=== PATIENT | male | born 1935 | race Caucasian/White ===

== ENCOUNTER 2016-09-28 13:50 | Emergency (ER) | payer OTHER ==
[~2016-09-28] VITALS: Wt 66.0 kg
[2016-09-28 14:58] LABS: ADD SCAN DIFF NO
[2016-09-28 15:00] LABS: BASOPHILS % 0.5 % (0.0-2.0); EOSINOPHILS # 0.3 10^3/ul (0.0-0.5); EOSINOPHILS % 5.4 % (0.0-7.0); HEMATOCRIT 46.7 % (42.0-52.0); HEMOGLOBIN 15.5 g/dl (14.0-18.0); LYMPHOCYTES # 1.4 10^3/ul (0.8-2.9); LYMPHOCYTES % 23.8 % (15.0-51.0); MEAN CORPUSCULAR HEMOGLOBIN 31.3 pg (29.0-33.0); MEAN CORPUSCULAR HGB CONC 33.2 g/dl (32.0-37.0); MEAN CORPUSCULAR VOLUME 94.2 fl (82.0-101.0); MEAN PLATELET VOLUME 10.1 fl (7.4-10.4); MONOCYTE # 0.6 10^3/ul (0.3-0.9); MONOCYTES % 10.8 % (0.0-11.0); NEUTROPHIL # 3.4 10^3/ul (1.6-7.5); NEUTROPHILS % 59.2 % (39.0-77.0); PLATELET COUNT 209 10^3/UL (140-415); RED BLOOD COUNT 4.96 10^6/ul (4.70-6.10); RED CELL DISTRIBUTION WIDTH 14.5 % (11.5-14.5); WHITE BLOOD COUNT 5.7 10^3/ul (4.8-10.8)
[2016-09-28 15:02] LABS: ADD UMIC YES; URINE BILIRUBIN (Dip) 2+ (NEGATIVE); URINE BLOOD (Dip) 1+ (NEGATIVE); URINE COLOR DK. YELLOW (YELLOW); URINE GLUCOSE (Dip) NEGATIVE (NEGATIVE); URINE KETONES (Dip) TRACE (NEGATIVE); URINE LEUKOCYTE ESTERASE (Dip) NEGATIVE (NEGATIVE); URINE NITRITE (Dip) NEGATIVE (NEGATIVE); URINE TOTAL PROTEIN (Dip) NEGATIVE (NEGATIVE); URINE UROBILINOGEN (Dip) 1.0 E.U./dL (0.1-1.0)
[2016-09-28 15:29] LABS: ICTOTEST POSITIVE (NEGATIVE)
[2016-09-28 15:30] LABS: BACTERIA,URINE FEW; TRANSITIONAL EPI CELLS,URINE OCCASIONAL
[2016-09-28 15:32] LABS: ALBUMIN 4.7 g/dl (3.3-4.9); ALBUMIN/GLOBULIN RATIO 1.04; BILIRUBIN,DIRECT 0.9 mg/dl (0.00-0.20); BILIRUBIN,INDIRECT 0.8 mg/dl (0-1.1); BILIRUBIN,TOTAL 1.7 mg/dl (0.2-1.3); CALCIUM 9.9 mg/dl (8.4-10.2); CREATININE 1.17 mg/dl (0.61-1.24); POTASSIUM 4.1 mmol/L (3.5-5.1); TOTAL PROTEIN 9.2 g/dl (6.1-8.1)
--- NOTE | 2016-09-28 15:57 | RADRPT ---
PROCEDURE: CT Abdomen and Pelvis without contrast. CLINICAL INDICATION: Elevated liver enzymes. TECHNIQUE: CT scan of the abdomen and pelvis without contrast was performed. Coronal and sagittal reformatted images were obtained from the axial source images. Images were reviewed on a high-resolu [place] PACS workstation. Total exam DLP is 552.75 mGy-cm. CTDIvol is 10.12 mGy. One or more of the f ollowing dose reduction techniques were used: Automated exposure control, adjustment of the mA and/o r kV according to patient size, use of iterative reconstruction technique. COMPARISON: None. FINDINGS: The lung bases are normal. There is no pleural effusion. The liver is normal in size and attenuation. There is no focal hepatic lesion. The gallbladder is unremarkable with no evidence of stones or wall thickening. There is diffuse kannan iary dilatation. The spleen is normal in size. There is no focal splenic lesion. Both adrenals are normal with no enlargement or mass. The pancreas is unremarkable with no mass or evidence of pancreatitis. There is no solid renal mass, hydronephrosis, or calculus. There is a benign cyst in the upper righ t kidney measuring 4.6 cm, a benign cyst in the upper to mid left kidney measuring 3.1 cm, and a radha ign cyst in the mid left kidney laterally measuring 3.5 cm. There is no ureteral calculus on either side. The abdominal aorta is not dilated. There is calcification in the aorta consistent with atheroscler osis. There is no retroperitoneal lymphadenopathy or mass. There is no pelvic lymphadenopathy or mass. The bladder and distal ureters are normal. The appendix is well seen and appears normal. There is a left inguinal hernia containing only omental fat. There is no herniated bowel. The kamran l and mesentery are otherwise normal. There is no free fluid or free gas. There are degenerative changes of the spine. Bilateral pars defects are present at L4 and there is grade 1 anterolisthesis at L4-5 measuring 0.7 cm. IMPRESSION: 1. Diffuse biliary dilatation. Correlation with MRCP should be considered. 2. Benign bilateral renal cysts. 3. Atherosclerosis. 4. Left inguinal hernia containing only omental fat. 5. Degenerative changes of the spine. 6. Bilateral pars defects at L4 and grade 1 anterolisthesis at L4-5. 7. Otherwise unremarkable study. RPTAT: QQ .Tano So MD, MD Date Time Electronically viewed and signed by .Tano So MD, MD on 09/28/2016 15:57 .R/
--- NOTE | 2016-09-28 16:12 | RADRPT ---
PROCEDURE: Right Upper Quadrant Ultrasound. CLINICAL INDICATION: elevated liver enzymes, elevated bili TECHNIQUE: Multiple real-time images were acquired of the patient's right upper quadrant abdomen a nd retroperitoneum utilizing a high resolution transducer. COMPARISON: None FINDINGS: The liver measures 15.3 cm, and demonstrates normal echogenicity. The main portal vein is patent wit h proper directional flow. There is no intrahepatic biliary ductal dilatation. The extrahepatic comm on bile duct measures 11 mm. There is cholelithiasis. There is no gallbladder wall thickening or pericholecystic fluid. The visualized pancreas is unremarkable. The right kidney measures 10.4 x 4.6 x 4.4 cm and demonstrates normal echotexture. There is no right renal calculus or hydronephrosis. There is a 3.8 cm simple right upper pole renal cyst. There is atrophy of the right renal cortex wh ich measures up to 8 mm in thickness. The visualized abdominal aorta and IVC are grossly unremarkable. IMPRESSION: Cholelithiasis without gallbladder wall thickening or pericholecystic fluid that would suggest acute cholecystitis. However, there is marked dilatation of the common bile duct to 11 mm. A HIDA scan or MRCP is recommended for further evaluation of possible choledocholithiasis. Atrophic right kidney with a 3.8 cm simple cyst. RPTAT: EE Physician Yoli Date Time Electronically viewed and signed by Physician Yoli on 09/28/2016 16:11 /
[2016-09-28 17:12] VITALS: BP 164/80; PULSE 54; RESP 17; TEMP 97.3
[2016-09-28] MEDS ORDERED: HYDR-842 PO (17:32)
--- NOTE | 2016-09-28 17:59 | ERD ---
ER Documentation Chief Complaint Date/Time DATE: 09/28/16 TIME: 17:51 Chief Complaint ELEVATED LIVER ENZYMES, SENT PER PMD FOR EVAL, NO OTHER COMPLAINTS HPI This 81-year-old male was sent in by his primary care doctor because of elevated liver enzymes. He has had itchiness for the last week. He feels itchy of his whole body. He has no abdominal pain, nausea vomiting, fevers or, chills. He otherwise feels well. ROS All systems reviewed and are negative except as per history of present illness. Medications Home Meds Active Scripts Hydroxyzine Hcl* (Atarax*) 25 Mg Tab, 25 MG PO Q8H Y for ITCHING, #14 TAB Prov:SAEID BRAND DO 09/28/16 Allergies Allergies: Coded Allergies: No Known Allergy (Unverified , 09/28/16) PMhx/Soc History of Surgery: No Anesthesia Reaction: No Hx Neurological Disorder: Yes (Dimentia.) Hx Respiratory Disorders: No Hx Cardiac Disorders: No Hx Psychiatric Problems: No Hx Miscellaneous Medical Probl: No Hx Alcohol Use: No Hx Substance Use: No Hx Tobacco Use: No Smoking Status: Never smoker Physical Exam Vitals Vital Signs Date Time Temp Pulse Resp B/P Pulse Ox O2 Delivery O2 Flow Rate FiO2 09/28/16 17:12 97.3 54 17 164/80 98 Room Air 09/28/16 13:54 97.7 86 17 105/64 98 Physical Exam Const: [] No distress Head: Atraumatic Eyes: Mild scleral icterus ENT: Normal External Ears, Nose and Mouth. Neck: Full range of motion..~ No meningismus. Resp: Clear to auscultation bilaterally Cardio: Regular rate and rhythm, no murmurs Abd: Soft, non tender to both superficial and deep palpation, negative Wallace 's, non distended. Normal bowel sounds Skin: No petechiae or rashes Back: No midline or flank tenderness Ext: No cyanosis, or edema Neur: Awake and alert and oriented 2, no focal deficit Psych: Normal Mood and Affect Result Diagram: 09/28/16 1450 09/28/16 1450 Results 24 hrs Laboratory Tests Test 09/28/16 14:35 09/28/16 14:50 09/28/16 17:10 Urine Color DK. YELLOW Urine Clarity CLEAR Urine pH 5.5 Urine Specific [place] 1.010 Urine Ketones TRACE Urine Nitrite NEGATIVE Urine Bilirubin 2+ Urine Ictotest POSITIVE Urine Urobilinogen 1.0 E.U./dL Urine Leukocyte Esterase NEGATIVE Urine Microscopic RBC 2-5/HPF Urine Microscopic WBC 0-2/HPF Urine Transitional Epithelial Cells OCCASIONAL Urine Bacteria FEW Urine Hemoglobin 1+ Urine Glucose NEGATIVE% Urine Total Protein NEGATIVE White Blood Count 5.710^3/ul Red Blood Count 4.9610^6/ul Hemoglobin 15.5g/dl Hematocrit 46.7% Mean Corpuscular Volume 94.2fl Mean Corpuscular Hemoglobin 31.3pg Mean Corpuscular Hemoglobin Concent 33.2g/dl Red Cell Distribution Width 14.5% Platelet Count 68586^3/UL Mean Platelet Volume 10.1fl Neutrophils % 59.2% Lymphocytes % 23.8% Monocytes % 10.8% Eosinophils % 5.4% Basophils % 0.5% Nucleated Red Blood Cells % 0.0/100WBC Neutrophils # 3.410^3/ul Lymphocytes # 1.410^3/ul Monocytes # 0.610^3/ul Eosinophils # 0.310^3/ul Basophils # 0.010^3/ul Nucleated Red Blood Cells # 0.010^3/ul Sodium Level 141mmol/L Potassium Level 4.1mmol/L Chloride Level 104mmol/L Carbon Dioxide Level 27mmol/L Anion Gap 14 Blood Urea Nitrogen 21mg/dl Creatinine 1.17mg/dl Glucose Level 110mg/dl Calcium Level 9.9mg/dl Total Bilirubin 1.7mg/dl Direct Bilirubin 0.90mg/dl Indirect Bilirubin 0.8mg/dl Aspartate Amino Transf (AST/SGOT) 670IU/L Alanine Aminotransferase (ALT/SGPT) 893IU/L Alkaline Phosphatase 315IU/L Total Protein 9.2g/dl Albumin 4.7g/dl Globulin 4.50g/dl Albumin/Globulin Ratio 1.04 Lipase 184U/L Ammonia 60umol/l Procedures/MDM Patient with concerning transaminitis as well as dilated common bile duct. Also has elevated ammonia level. Differential diagnosis includes choledocholithiasis versus hepatitis. Surprisingly patient has minimal symptoms. Regardless, I recommended admission to the hospital. However the patient does not want to spend any time in the hospital currently. He is very afraid of hospital stays. The son agrees with him and states that because of his dementia he does not do well in hospitals becomes very agitated. I printed his laboratories and explained to the concerning findings and why I would like to admit him to the hospital for further testing and GI consultation prevent worsening liver disease. With the patient and the son still would like to sign AGAINST MEDICAL ADVICE. They do agree to return emergency room if the patient experiences any fevers or abdominal pain whatsoever. I am prescribing Atarax for the patient's itching. CT abdomen pelvis interpretation: Marketd dilation of the biliary ducts. No liver masses, no evidence of cirrhosis, no obstruction, no free air, no abnormal fat stranding, no fractures Right upper quadrant ultrasound interpretation: Common bile duct dilated to 11 mm, gallstones, no gallbladder wall thickening or pericystic colic fluid. Departure Diagnosis: Primary Impression: Choledocholithiasis Additional Impressions: Liver enzyme elevation Dilated bile duct Itching Condition: Stable Patient Instructions: How the Liver Works Additional Instructions: Call your primary care doctor TOMORROW for an appointment during the next 2-3 days.See the doctor sooner or return here if your condition worsens before your appointment time. SAEID BRAND DO September 28, 2016 17:59
[2016-09-28] MEDS ORDERED: ATOR10TA65 PO (19:22)
[2016-09-28] MEDS ORDERED: MEMA7CAP PO (19:22)
[2016-09-28] MEDS ORDERED: FINA5TAB4 PO (19:23)
[2016-09-28] MEDS ORDERED: TAMS0.4C2 PO (19:23)
[2016-09-28] MEDS ORDERED: PROP10TA6 PO (19:23)
[2016-09-28] MEDS ORDERED: ALLO100T PO (19:24)
[2016-09-28] MEDS ORDERED: ASPI-664 PO (19:24)
== END 2016-09-28 17:58 | disposition left against medical advice (07) ==
LOC: FTE 13:50
DX: K80.50 Calculus of bile duct without cholangitis or cholecystitis without obstruction (principal); K83.8 Other specified diseases of biliary tract; L29.9 Pruritus, unspecified
CPT/HCPCS: 36415; 74176; 76705; 80053; 81001; 82140; 83690; 85025